=== PATIENT | female | born 1975 | race Caucasian/White ===

== ENCOUNTER → 2018-06-03 | Outpatient (CLI) | payer OTHER ==
[~2018-06-03] MED LIST: ALBU90OI INH; AMOX500 PO; AMOX875; AZIT250 PO; Ativan1 MG PO; BENZ100A PO; DIPATR PO; DOC250 PO; DULO60 PO; ERYT333ERA PO; ESCI10 PO; FAMO20 PO; FLUT110OIA IH; GABA600 PO; HYDACE10B PO; HYDACE5 PO; HYDACE5325 PO; Hydrocodone-Ap1 EA23; IBUP400 PO; LANS15EC PO; LORA1 PO; METO10 PO; METPRE4DP PO; Monodox100 MG PO; Norco 5-325 Ta1 EACH PO; ONDA8ODT MM; OXYACE5T; PRAZ2 PO; PREG25 PO; PROCODE120 PO; PROM25 PO; PROM25S PR; PSEU30; Pepcid40 MG PO; Percocet 5-3251 EACH PO; Prednisone20 MG PO; Prozac20 MG; RANI150 PO; RXCLIN PO; SPACE CHAMBER1 EACH MC; TRAZ50 PO; Valtrex1000 MG PO; Zofran Odt4 MG SL; Zofran4 MG PO
[2018-06-05 14:08] LABS: HPV 16 Negative (Negative); HPV 18 Negative (Negative); HPV OTHER HR TYPES Negative (Negative)
== END ==
LOC: LAB 17:54 → LAB SHORT 17:54
PROVIDERS: Nurse Practitioner Women's Health
DX: Z12.4 Encounter for screening for malignant neoplasm of cervix (principal)
CPT/HCPCS: 87624; G0123

== ENCOUNTER 2019-02-27 07:46 | Emergency (ER) | payer OTHER ==
[~2019-02-27] VITALS: Ht 175.3 cm; Wt 101.2 kg
[2019-02-27] MEDS ORDERED: Bactrim Ds Tab1 EACH PO (08:28)
== END 2019-02-27 09:05 | disposition home or self-care (01) ==
LOC: ER 07:46
DX: N61.1 Abscess of the breast and nipple (principal); F41.9 Anxiety disorder, unspecified; F17.210 Nicotine dependence, cigarettes, uncomplicated; Z79.899 Other long term (current) drug therapy; Z79.52 Long term (current) use of systemic steroids
CPT/HCPCS: 99282

== ENCOUNTER → 2021-03-30 | Outpatient (CLI) | payer OTHER ==
[~2021-03-30] MED LIST changes: +Bactrim Ds Tab1 EACH PO
== END ==
LOC: LAB SHORT 17:00
DX: L02.92 Furuncle, unspecified (principal)
CPT/HCPCS: 87070; 87075; 87205

== ENCOUNTER 2021-06-17 15:10 | Emergency (ER) | payer OTHER ==
[~2021-06-17] VITALS: Ht 175.3 cm; Wt 89.4 kg
[2021-06-17] MEDS ORDERED: SULTRIDS PO (16:24)
[2021-06-17] MEDS ORDERED: CEPH500 PO (16:24)
== END 2021-06-17 16:32 | disposition home or self-care (01) ==
LOC: ER 15:10
DX: H60.01 Abscess of right external ear (principal); F17.210 Nicotine dependence, cigarettes, uncomplicated; Z79.899 Other long term (current) drug therapy; Z79.891 Long term (current) use of opiate analgesic; Z79.52 Long term (current) use of systemic steroids
CPT/HCPCS: 99283; A9270

== ENCOUNTER 2024-01-25 20:25 | Inpatient (IN) | payer OTHER ==
[~2024-01-25] VITALS: Ht 165.1 cm; Wt 52.6 kg
[~2024-01-25 20:25] MED LIST changes: +CEPH500 PO; +SULTRIDS PO
[2024-01-25 23:47] LABS: Source, Urine Clean Catch
[2024-01-25 23:49] LABS: Bilirubin, Urine Neg (Neg); Blood, Urine Neg (Neg); Glucose Qualitative, Urine Neg (Neg); Ketones, Urine Neg (Neg); Leukocyte Esterase, Urine Neg (Neg); Nitrite, Urine Neg (Neg); Protein, Urine 2+ (Neg); Urobilinogen, Urine NORM (Normal)
[2024-01-25 23:53] LABS: Appearance, Urine Clear (Clear); Color, Urine Yellow (P-Yellow)
[2024-01-25 23:59] LABS: Amorphous Light (0-Heavy); Bacteria Rare /hpf; Mucus Mod (0-Heavy); Red Blood Cells, Urine Not Seen /hpf (0-2); Squamous Epithelial Cells Rare /hpf (Few); White Blood Cells, Urine 0-2 /hpf (0-5)
[2024-01-26] LABS: BASOPHILS PERCENT AUTO 1 % (0-2); EOSINOPHILS ABSOLUTE AUTO 0.18 K/mm3 (0.00-0.68); EOSINOPHILS PERCENT AUTO 2 % (0-6); Hemoglobin 12.9 g/dL (11.5-16.0); IMMATURE GRAN ABSOLUTE AUTO 0.04 K/mm3 (0.00-0.10); IMMATURE GRAN PERCENT AUTO 0 % (0-1); LYMPHOCYTES ABSOLUTE AUTO 2.09 K/mm3 (0.84-5.20); LYMPHOCYTES PERCENT AUTO 19 % (21-46); MONOCYTES ABSOLUTE AUTO 1.04 K/mm3 (0.16-1.47); MONOCYTES PERCENT AUTO 10 % (4-13); Mean Corpuscular HGB 32.7 pg (26.0-34.0); Mean Corpuscular HGB Conc 33.9 g/dL (31.5-36.5); Mean Corpuscular Volume 96 fL (80-100); Mean Platelet Volume 11.9 fL (9.1-12.4); NEUTROPHILS ABSOLUTE AUTO 7.38 K/mm3 (1.96-9.15); NEUTROPHILS PERCENT AUTO 68 % (41-73); Platelet Count 274 K/mm3 (150-400); RDW Standard Deviation 42.9 fL (35.1-46.3); Red Blood Cell Count 3.94 M/mm3 (3.80-5.20); White Blood Cell Count 10.83 K/mm3 (4.00-11.30)
[2024-01-26 00:06] LABS: U Amphetamine Screen DETECTED; U Barbituate Screen Not Detected; U Benzodiazapine Screen Not Detected; U Buprenorphine Screen Not Detected; U Cannabinoids Screen DETECTED; U Cocaine Screen Not Detected; U Methadone Screen Not Detected; U Methamphetamine Screen DETECTED; U Opiates Screen Not Detected; U Oxycodone Screen Not Detected; U Phencyclidine Screen Not Detected
[2024-01-26 00:21] LABS: Acetaminophen, Random <2.0 ug/mL (10.0-30.0); Alanine Aminotransfer (ALT/SGP 37 U/L (12-78); Albumin, Blood 4.1 g/dL (3.4-5.0); Albumin/Globulin Ratio 1.3 (0.8-1.8); Alk Phos 89 U/L (50-136); Anion Gap 13 mmol/L (3-11); Aspartate Aminotrans (AST/SGOT 24 U/L (12-37); Bilirubin, Total 0.7 mg/dL (0.1-1.0); Blood Urea Nitrogen 17 mg/dL (8-24); Bun/Creatinine Ratio 23.8 (12.0-20.0); CO2, Blood 25 mmol/L (21-32); Calcium, Blood 9.6 mg/dL (8.5-10.1); Chloride, Blood 108 mmol/L (98-108); Creatinine, Blood 0.71 mg/dL (0.40-1.00); Ethanol (Alcohol), Blood, Med <3 mg/dL; Globulin, Blood 3.1 g/dL (2.2-4.0); Glomerular Filtration Rate 105 (60-); Glucose, Blood 136 mg/dL (70-99); Potassium, Blood 3.8 mmol/L (3.5-5.5); Salicylate 3.3 mg/dL (2.8-20.0); Sodium, Blood 142 mmol/L (136-145); Total Protein, Blood 7.2 g/dL (6.4-8.2)
[2024-01-26 00:40] LABS: Influenza A, PCR NEGATIVE (NEGATIVE); Influenza B, PCR NEGATIVE (NEGATIVE); Resp Syncytial Virus, PCR NEGATIVE (NEGATIVE); SARS-Cov-2 (COVID-19) PCR, MMC NEGATIVE (NEGATIVE)
[2024-01-26] MEDS ORDERED: Ibuprofen 600 MG Tab PO ONE (10:50)
[2024-01-27] MEDS ORDERED: Ibuprofen 400 MG Tab PO PRN (08:45)
[2024-01-27] MEDS ORDERED: Peg 400/Hypromellose/Glycerin 15 DROP/ML BTL LEFTEYE SCH (12:00)
[2024-01-27] MEDS ORDERED: Atropine Sulfate 1% Opth Soln 2ML BTL LEFTEYE SCH (14:00)
[2024-01-27] MEDS ORDERED: Brimonidine Tartrate 0.2% Opth 5 ml LEFTEYE SCH (14:00)
[2024-01-28 09:37] VITALS: BP 122/94
[2024-01-28] MEDS ORDERED: ATROPINE SULFATE2 M1 LEFTEYE (17:59)
[2024-01-28] MEDS ORDERED: Alphagan P5 ML (18:00)
[2024-01-28] MEDS ORDERED: ARTIFICIAL TEAR15 M2 LEFTEYE (18:05)
== END 2024-01-28 14:17 | disposition other institution (70) | DRG 885 ==
LOC: ER 20:25 → EOR 20:26 → ER 20:26 → EOR 01-27 05:34
PROVIDERS: Student in an Organized Health Care Education/Training Program; ADMIT Emergency Medicine
DX: F23 Brief psychotic disorder (principal); F41.9 Anxiety disorder, unspecified; F12.90 Cannabis use, unspecified, uncomplicated; E86.0 Dehydration; F17.210 Nicotine dependence, cigarettes, uncomplicated; S92.332A Displaced fracture of third metatarsal bone, left foot, initial encounter for closed fracture; S90.852A Superficial foreign body, left foot, initial encounter; M25.561 Pain in right knee; F43.10 Post-traumatic stress disorder, unspecified; F15.10 Other stimulant abuse, uncomplicated; Z71.6 Tobacco abuse counseling; Z86.14 Personal history of Methicillin resistant Staphylococcus aureus infection; Z90.49 Acquired absence of other specified parts of digestive tract; Z98.890 Other specified postprocedural states; Z88.6 Allergy status to analgesic agent; Z88.8 Allergy status to other drugs, medicaments and biological substances; Z79.899 Other long term (current) drug therapy; V03.10XA Pedestrian on foot injured in collision with car, pick-up truck or van in traffic accident, initial encounter; Y92.410 Unspecified street and highway as the place of occurrence of the external cause
CPT/HCPCS: 0241U; 29515; 73630; 80053; 80320; 81001; 81025; 85025; 86592; 93005; 93010; 99285-25; A9270; G0378; G0480

== ENCOUNTER 2024-01-27 05:34 | Inpatient (IN) | payer OTHER ==
[~2024-01-27] VITALS: Ht 175.3 cm; Wt 73.6 kg
[2024-01-27] MEDS ORDERED: LORazepam 2 MG Tab PO PRN (11:40)
[2024-01-27] MEDS ORDERED: FLU VACC TS2024-25(6MOS UP)/PF 45 MCG/0.5 ML SYRINGE IM ONE (11:40)
[2024-01-27] MEDS ORDERED: DiphenhydrAMINE HCl 50 MG Cap PO PRN (11:40)
[2024-01-27] MEDS ORDERED: OLANZapine ODT 5 MG Tab MM PRN (11:40)
[2024-01-27] MEDS ORDERED: Haloperidol 5 MG Tab PO PRN (11:40)
[2024-01-28] MEDS ORDERED: Acetaminophen 500 MG Tab PO PRN (15:35)
--- NOTE | 2024-01-28 17:00 | NUR ---
PT ORIENTED TO THE FLOOR AND WAS GIVEN TYLENOL 500MG FOR "CONSTANT PAIN" OF 6/10w IT WAS MINIMALLY AFFECTIVE 5/10w. PT IS FRIENDY AND COOPERATIVE WITH CARE. SHE IS RESTING IN BED AT THIS TIME.
[2024-01-28] MEDS ORDERED: OxyCODONE 5 mg/Acetamin 325 mg TABLET PO PRN (17:55)
[2024-01-28] MEDS ORDERED: ATROPINE SULFATE2 M1 LEFTEYE (17:59)
[2024-01-28] MEDS ORDERED: Docusate Sodium 100 MG Cap PO SCH (18:00)
[2024-01-28] MEDS ORDERED: Alphagan P5 ML (18:00)
[2024-01-28] MEDS ORDERED: ARTIFICIAL TEAR15 M2 LEFTEYE (18:05)
[2024-01-28 21:30] VITALS: BP 113/64
--- NOTE | 2024-01-29 04:26 | NUR ---
TOMÁS IN ROOM RESTING IN ROOM AT START OF SHIFT APPEARING UNKEMPT, A&O X 3. DENIED SI/HI/AVTH AND ENDORSED PAIN 4/10 TO BL LEGS AND KNEE. PT RECEIVED PAIN MEDICATION ON PREVIOUS SHIFT AND IT IS NOT YET TIME FOR NEXT DOSE. PT STATED "I FEEL A LITTLE SAD, I KEEP THINKING ABOUT MY DOG THAT PASSED." SUPPORT AND ENCOURAGEMENT PROVIDED. PT OBSERVED TO USE RESTROOM X 1 TO URINATE AND REPORTED SHE HAD A BM EARLIER IN THE DAY. PT DECLINED NEED FOR SHOWER THIS SHIFT. PT APPEARED TO SLEEP MOST OF SHIFT, CHEST RISING IN NAD. SAFETY MEASURES MAINTAINED VIA Q15 MINUTE CHECKS.
[2024-01-29 08:50] VITALS: BP 130/66
--- NOTE | 2024-01-29 11:13 | NUR ---
PODIATRY CONSULT CALLED TO DR. MCKEON PER DR. AGUDELO
[2024-01-29] MEDS ORDERED: Peg 400/Hypromellose/Glycerin 15 DROP/ML BTL RIGHTEYE PRN (15:20)
[2024-01-29] MEDS ORDERED: Ibuprofen 400 MG Tab PO PRN (16:45)
[2024-01-29] MEDS ORDERED: OxyCODONE 5 mg/Acetamin 325 mg TABLET PO PRN (16:45)
--- NOTE | 2024-01-29 19:27 | NUR ---
SHIFT REX PT AA&OX4. PLEASANT AND COOPERATIVE WITH CARE. SPEECH AND EYE CONTACT APPROPRIATE. MOOD IS GOOD BUT REPORTS SHE MISSES HER DOG. REPORTS BLE PAIN AT 6. LLE ELEVATED AND ICES THROUGH OUT DAY. PAIN MEDICATION INCREASED FRON Q8 TO Q6 WITH GOOD RESULTS. PODIATRY CONSULT IN. DENIES SI, AVH. PARICIPATED WITH MAMADOU AND YOLA. DENIES ANY CURRENT NEEDS.
[2024-01-29] MEDS ORDERED: Brimonidine Tartrate 0.2% Opth 5 ml LEFTEYE SCH (21:00)
[2024-01-29] MEDS ORDERED: OLANZapine 5 MG Tab PO SCH (21:00)
[2024-01-29] MEDS ORDERED: Atropine Sulfate 1% Opth Soln 2ML BTL LEFTEYE SCH (21:00)
--- NOTE | 2024-01-30 04:17 | NUR ---
TOMÁS IN ROOM RESTING IN ROOM AT START OF SHIFT APPEARING UNKEMPT, A&O X 3. DENIED SI/HI/AVTH AND ENDORSED PAIN 3/10 TO BL LEGS. PT DECLINED NEED FOR PAIN MEDICATION STATING,"THEY JUST GAVE ME SOME." PTs BOOT PLACED IN NS FOR SAFETY. PT STATED "I FEEL GOOD, ITS MY BIRTHDAY." COMPLIANT WITH HS MEDS.PT APPEARED TO SLEEP MOST OF SHIFT AND IS STILL CURRENTLY IN BED WITH CHEST RISING IN NAD. SAFETY MEASURES MAINTAINED VIA Q15 MINUTE CHECKS.
[2024-01-30] MEDS ORDERED: Sertraline HCl 50 MG Tab PO SCH (09:00)
[2024-01-30 14:21] VITALS: BP 136/68
--- NOTE | 2024-01-30 18:32 | NUR ---
SHIFT REX PT AA&OX4. PLEASANT AND COOPERATIVE WITH CARE. SPEECH AND EYE CONTACT APPROPRIATE. COMPLIANT WITH MEDICATION. LLE PAIN WELL CONTROLLED WITH CURRENT PAIN REGIMINE. PT UP TO SHOWER, MEALS, AND GROUP. DENIES SI, AVH. PODIATRY IN TO CONSULT. LLE OKAY AND PATIENT DOES NOT NEED TO WEAR SHOE. PT DENIES ANY OTHER CURRENT NEEDS. WILL CONTINUE POC
--- NOTE | 2024-01-31 01:48 | NUR ---
ASSUMED CARE FROM PRIOR SHIFT. PATIENT SLEEPING THROUGH OUT NIGHT SFIFT. SHE DOES WAKE EASILY FOR PM MEDICATIONS. SHE IS A/OX 4 ABLE TO VOICE NEEDS. SHE DENIES PAIN, AH. VH AND SI. SHE FALLS BACK TO SLEEP AFTER MED PASS AND ASSESSMENT. SHE CONTINUES TO SLEEP WITHOUT ANY BEHAVIORS OR ISSUES.
--- NOTE | 2024-01-31 04:10 | NUR ---
PATIENT CONTINUES TO SLEEP THROUGH THE NIGHT WITHOUT BEHAVIORS OR ISSUES.
[2024-01-31 08:55] VITALS: BP 113/85
--- NOTE | 2024-01-31 10:18 | NUR ---
PT UP EARLY THIS AM. COMPLAINT OF 5/10 FOR PAIN TO LEFT FOOT. ABLE TO WALK OK. IS Calm AND PLEASANT. USED EYE DROPS WITH RELIEF ALSO. FRIENDLEY AND COOPERATIVE.DENIES SI. STATES HER MOOD HAS MUCH IMPROVED. INTERACTS WITH OTHERS IN [place] WILL CONTINUE TO MONITOR.
--- NOTE | 2024-01-31 17:30 | NUR ---
SHIFT SUMMARY: PT HAS HAD A GOOD DAY. FAMILY CAME TO VISIT. HAS GOOD PAIN RELIEF WITH PERCOCET AND ADVIL. HAS TAKEN 2 LONG NAPS TODAY. IS IN HAPPY MOOD AND LAUGHS A LOT. MINGLES IN THE [place]. WILL CONTINUE TO MONITOR
--- NOTE | 2024-02-01 03:54 | NUR ---
ASSUMED CARE FROM PRIOR SHIFT. PATIENT IS SLEEPING ALL THROUGH SHIFT. SHE DOES WAKE EASILY TO MEDICATIONS AND ASSESSMENT. SHE CURRENTLY DENIES ANY SI, VH OR AH. SHE QUICKLY GOES BACK TO SLEEP WITHOUT ANY BEHAVIORS OR ISSUES.
[2024-02-01] MEDS ORDERED: Sertraline HCl 50 MG Tab PO SCH (09:00)
[2024-02-01 09:56] VITALS: BP 124/67
[2024-02-01] MEDS ORDERED: Ibuprofen 600 MG Tab PO PRN (11:40)
--- NOTE | 2024-02-01 18:04 | NUR ---
SHIFT SUMMARY PT AA&OX4. PLEASANT AND COOPERATIVE WITH CARE. PT HAS BEEN POSITIVE AND ENCOURAGING COHORTS. SPEECH AND EYE CONTACT APPROPRIATE. MOOD IS EUTHYMIC. COMPLIANT WITH MEDICATIONS. UP TO MEALS, SHOWER, AND ACTIVELY PARTICIPATING IN [employer]. PAIN WELL CONTROLED. DENIES ANY CURRENT NEEDS OR CONCERNS. WILL CONTINUE WITH POC
[2024-02-01 20:17] VITALS: BP 113/59
--- NOTE | 2024-02-02 03:14 | NUR ---
ASSUMED CARE FROM PRIOR SHIFT. PATIENT A/OX4, ABLE TO VOICE NEEDS AND HAVE MEANINGFUL CONVERSATION. SHE IS COMPLIANT WITH CARE, ASSESSMENT AND MEDICATIONS. SHE GOES TO BED WITHOUT ENCOURAGMENT AND SLEEPS THROUGH THE NIGHT WITHOUT BEHAVIORS OR ISSUES.
--- NOTE | 2024-02-02 05:04 | NUR ---
PATIENT SLEPT THROUGH THE NIGHT. NO NOTED ISSUES OR BEHAVIORS. WE WILL CONTINUE TO MONITOR.
[2024-02-02 08:53] VITALS: BP 128/73
[2024-02-02] MEDS ORDERED: SERT50 PO (10:40)
[2024-02-02] MEDS ORDERED: OLAN5 PO (10:40)
--- NOTE | 2024-02-02 12:33 | NUR ---
DISCHARGE SUMMARY PT AxOx4. PLEASANT AND COOPERATIVE WITH CARE. PT DISCHARGING HOME TODAY WITH HER DAUGHTER. PT HAS BEEN FOLLOWING CARE PLAN, TAKING MEDS PRESCRIBED, ATTENDING GROUPS AND SOCIALIZING WITH PEERS/STAFF. PT IS MOTIVATED TO GO HOME AND INCORPORATE POSITIVE CHANGES. DISCUSSED DISCHARGE INSTRUCTIONS INCLUDING DISCHARGE MEDS, FOLLOW UP APPTS AND PATIENT EDUCATION ON DIAGNOSES AND NEW MEDS. PT VERBALIZED UNDERSTANDING. DENIED FURTHER QUESTIONS AT THIS TIME. PT'S BELONGINGS RETURNED. PT SAFELY ESCORTED OUT TO HER DAUGHTER'S CAR BY A.
--- NOTE | 2024-02-02 12:46 | NUR ---
All pt belongings have been returned. Belongings have been gathered and returned from [facility] as well. Pt Discharged at 12:30p
== END 2024-02-02 12:31 | disposition home or self-care (01) | DRG 897 ==
LOC: BHU 05:34
PROVIDERS: ADMIT Psychiatry & Neurology Psychiatry
DX: F15.24 Other stimulant dependence with stimulant-induced mood disorder (principal); F43.10 Post-traumatic stress disorder, unspecified; F17.210 Nicotine dependence, cigarettes, uncomplicated; H16.002 Unspecified corneal ulcer, left eye; F41.9 Anxiety disorder, unspecified; Z86.14 Personal history of Methicillin resistant Staphylococcus aureus infection; Z90.49 Acquired absence of other specified parts of digestive tract; Z98.890 Other specified postprocedural states; Z88.6 Allergy status to analgesic agent; Z79.899 Other long term (current) drug therapy
CPT/HCPCS: A9270